=== PATIENT | male | born 2000 | race Caucasian/White ===

== ENCOUNTER 2025-01-31 15:09 | Emergency (ER) | payer OTHER, SELFPAY ==
[2025-01-31 15:19] VITALS: BP 132/78; PULSE 90; RESP 18; O2SAT 99
[2025-01-31] MEDS: Acetaminophen 500 MG TAB 1000 MG PO (15:55)
[2025-01-31] MEDS: Ibuprofen 800 MG TAB PO (15:56)
--- NOTE | 2025-01-31 16:13 | W.ED.GENAD ---
Discharge Plan Disposition Patient Disposition: [facility] Condition: Stable Discharge Details Clinical Impression: Mass of left testicle Primary Care Provider: Unknown,Unknown ED Provider: Juany Calix Home Meds and New Rx's Prescriptions: Continued lamotrigine [Lamictal] 25 mg tablet 25 mg PO DAILY buprenorphine-naloxone [Suboxone] 8-2 mg film 3 film sublingual DAILY Rx Instructions: use only 2 strips/tabs in mouth at one time, 1 under (each) side of tongue Discharge Instructions Additional Instructions: As we discussed, the ultrasound today is concerning for a mass in your left testicle. While I cannot definitively give you a diagnosis, I am concerned that this could indicate testicular cancer, particularly given that you are at a most common age to develop this diagnosis. I would like for you to follow-up with urology at [facility], I have spoken with the medical team and they will call to schedule follow-up appointment. Phone number there is [phone]. Please continue with Tylenol and ibuprofen as needed for discomfort. You may continue to try and elevate the testes this is to can help with pain. If you develop any new or worsening symptoms please seek care urgently once again. Referrals: Matt Acosta MD [ NON-[facility] STAFF PHYSICIAN, Urology] Discharge Data Discharge Date/Time-TO BE ENTERED AT DEPARTURE: 01/31/25 19:58 HPI General Date/Time Provider Initiated Documentation: 01/31/25 15:13. Limitations to Documentation: no limitations. Information obtained by: patient and RN notes reviewed. History of Present Illness 24 year old M presents to the emergency department with the chief complaint of left testicular pain, described as severe, Quality is described as stabbing and aching, Patient reports no radiation. Patient started experiencing this day(s) and it has been constant. Immobilization improves symptom(s), Movement worsens symptoms . Patient notes no other symptoms.. Patient did receive the following treatments prior to arrival, none Related Data Home Medications ?Medication ?Instructions ?Recorded ?Confirmed buprenorphine 8 mg-naloxone 2 mg 3 film sublingual DAILY 01/31/25 01/31/25 sublingual film (Suboxone) lamotrigine 25 mg tablet (Lamictal) 25 mg PO DAILY 01/31/25 01/31/25 Allergies Allergy/AdvReac Type Severity Reaction Status Date / Time ceftriaxone (From Rocephin) Allergy Intermediate rash Verified 01/31/25 15:20 General Stated Complaint: Male Reproductive Problem SOPHIA: 3 Review of Systems Constitutional Constitutional: Reports as per HPI, Denies chills, Denies fever(s) and Denies poor appetite Cardiovascular Cardiovascular: Denies chest pain Respiratory Respiratory: Denies cough Gastrointestinal Gastrointestinal: Denies abdominal pain, Denies change in bowel habits, Denies nausea and Denies vomiting Genitourinary Genitourinary: Reports as per HPI Musculoskeletal Musculoskeletal: Reports as per HPI and Denies back pain Integumentary/Breasts Skin/Breast: Reports as per HPI and Denies rash Exam Const General: cooperative, healthy appearing, comfortable, no acute distress, well developed and well groomed Nutritional Appearance: average body habitus and well nourished Orientation: alert and awake Resp Effort & Inspection: normal respiratory effort and no respiratory distress Cardio Rate: regular rate Rhythm: regular rhythm GI Inspection: normal to inspection Palpation: soft, no hepatosplenomegaly, not firm, no guarding, not rigid and nontender Penis: normal penis Meatus: meatus normal Scrotum: scrotum normal, no ecchymosis, not edematous and no hydroceles Testes: testicular mass (left testes is firm), testicular swelling on the left and testicular tenderness on the left Back/Spine/Pelvis Back: no CVA tenderness Skin General skin exam: no rashes or lesions noted Trauma: no lacerations or abrasions Neuro General: patient alert and patient awake Cognition: normal cognition Speech: speech normal Gait: normal gait Course Vital Signs Vital signs: Vital Signs Pulse 90 01/31/25 15:19 Respiratory Rate 18 01/31/25 15:19 Blood Pressure 132/78 01/31/25 15:19 Pulse Oximetry 99 01/31/25 15:19 Pulse 90 01/31/25 15:19 Respiratory Rate 18 01/31/25 15:19 Blood Pressure 132/78 01/31/25 15:19 Blood Pressure Position Sitting 01/31/25 15:19 Pulse Oximetry 99 01/31/25 15:19 Oxygen Delivery Method Room Air 01/31/25 15:19 Oxygen Flow Rate 0 01/31/25 15:19 Pain Level 9 01/31/25 15:56 Medical Decision Making Patient is a pleasant, otherwise healthy, 24-year-old male, currently incarcerated and brought in by staff, presenting with chief complaint of left testicular pain. He reports that he first noticed this about 4 days ago and pain has been steadily increasing. He reports that over the past 24 to 48 hours he noticed the testy has been swollen and the pain is increased. He denies being sexually active, has been incarcerated for the past 8 months. Even prior to that, he denies any new sexual encounters. Denies any penile discharge or pain with urination. He has never had pain like this historically. Denies any history of STI. He denies any testicular trauma. No recent viral illness or other systemic symptoms. He denies any fevers or chills. He has not tried anything to help with this discomfort as of yet. On exam, patient appears uncomfortable, particular with movements, but otherwise nontoxic. He is afebrile. Hemodynamically stable. No abdominal discomfort, no CVA tenderness. Exam of the genitalia shows normal penis, the left testy is swollen and firm. This is more so along the inferior aspect. As the patient has had the symptoms for the past several days, I find it less likely to be torsion. He has not had waxing or waning of his symptoms to suggest intermittent torsion. Symptoms have been more persistent and progressively worsening. Considered something like an orchitis although patient also denies any sexual exposures that would lend to the typical cause of orchitis or epididymitis. No evidence to suggest viral illness. Also considered testicular mass. Will obtain ultrasound, dirty urine and clean urine. Will give Tylenol and ibuprofen to help with discomfort. Ultrasound completed at bedside with myself and Dr. Saldana. Concerning for an irregular mass with embedded cystic structures. This is clearly demarcated with irregular boarders in the left testicle. Good blood flow to both right and left testicle. No hydrocele or evidence of torsion. Mass at this time is concerning for testicular cancer, patient's age would be appropriate for putting him at higher risk for such pathology. Consulting with urology regarding continued care. Dr. Siegel who is the consulting urologist advised that this will be managed as an outpatient. I did contact the residential and they will arrange for prompt follow-up with urology at [facility] will continue the further evaluation of the concerning mass that was noted. I did discuss these concerns with the patient at length. He voiced understanding and agrees to follow-up with urology for continued management. Return precautions were discussed. We discussed symptom management. All her questions and concerns were addressed and he is in agreement with this plan. Dictation completed using [employer] dictation software. Please excuse any errors or director of radio services anomalies that may remain. PFSH All Active Problems (Updated 01/31/25 @ 19:36 by DAVID Lazaro) Mass of left testicle (Acute) Social History Smoking/Tobacco Use Status: Former Tobacco Use Smoking risk assessment performed?: Yes Alcohol Intake: former Drug use: Current Sobriety Substance use type: does not use Housing: other
[2025-01-31 17:41] LABS: Glucose Negative (Negative)
[2025-01-31 19:54] VITALS: BP 135/75; PULSE 75; RESP 18; TEMP 36.8; O2SAT 100
[2025-02-02 12:45] LABS: Chlamydia Result Negative (Negative); GC Result Negative (Negative)
== END 2025-01-31 19:58 ==
PROVIDERS: Emergency Provider Physician Assistant
DX: N50.89 Other specified disorders of the male genital organs (principal)
CPT/HCPCS: 87491; 87591; 99285; 81003; 99284